=== PATIENT | male | born 1985 | race Caucasian/White ===

== ENCOUNTER 2016-08-11 00:15 | Emergency (ER) | payer OTHER ==
[~2016-08-11] VITALS: Ht 175.3 cm; Wt 92.0 kg
[2016-08-11 00:22] VITALS: Ht 175.3 cm; Wt 92.0 kg
[2016-08-11] MEDS ORDERED: ONDANSETRON (ODT) 4 MG TAB ODT STA (01:30)
--- NOTE | 2016-08-11 01:40 | ERD ---
ER Documentation Chief Complaint Date/Time DATE: 08/11/16 TIME: 01:37 Chief Complaint DIZZINESS BEGAN AT 10PM, NAUSEA AND VOMITING X 1. HPI 31-year-old male presents to emergency department for complaints of dizziness, nausea and vomiting epigastric pain started last night. Patient started to feel dizzy, had an episode of nausea and vomiting, started to have epigastric pain upper back pain, sharp pain, 4/10 scale, accompanying the symptoms. Patient denies any diarrhea or constipation. Patient denies any head injury. Patient denies any numbness. Patient denies any blood in the vomit. Patient denies any blood in the stool or black stool. Patient denies any acid reflux. Patient does verbalize eating a lot of spicy food. ROS All systems reviewed and are negative except as per history of present illness. Medications Home Meds Reported Medications [none] Unknown Strength No Conflict Check 08/11/16 Allergies Allergies: Coded Allergies: No Known Allergy (Unverified , 08/11/16) PMhx/Soc Medical and Surgical Hx: pt denies Medical Hx, pt denies Surgical Hx FmHx Family History: No coronary disease, No diabetes, No other Physical Exam Vitals Vital Signs Date Time Temp Pulse Resp B/P Pulse Ox O2 Delivery O2 Flow Rate FiO2 08/11/16 00:22 98.4 78 17 129/78 95 Physical Exam GENERAL: The patient is well developed and appropriate for usual state of health, in no apparent distress. CHEST: Clear to auscultation bilaterally. There are no rales, wheezes or rhonchi. HEART: Regular rate and rhythm. No murmurs, clicks, rubs or gallops. No S3 or S4. ABDOMEN: Soft, nontender and nondistended. Good bowel sounds. No rebound or guarding. No gross peritonitis. No gross organomegaly or masses. No Don sign or McBurney point tenderness. BACK: No midline or flank tenderness. EXTREMITIES: Equal pulses bilaterally. There is no peripheral clubbing, cyanosis or edema. No focal swelling or erythema. Full range of motion. Grossly neurovascularly intact. NEURO: Alert and oriented. Cranial nerves 2-12 intact. Motor strength in all 4 extremities with 5/5 strength. Sensation grossly intact. Normal speech and gait. SKIN: There is no apparent rash or petechia. The skin is warm and dry. HEMATOLOGIC AND LYMPHATIC: There is no evidence of excessive bruising or lymphedema. No gross cervical, axillary, or inguinal lymphadenopathy. Result Diagram: 08/11/1621208/11/163 Results 24 hrs Laboratory Tests Test 08/11/16 02:13 Alanine Aminotransferase (ALT/SGPT) 24IU/L Albumin 4.2g/dl Albumin/Globulin Ratio 1.05 Alkaline Phosphatase 117IU/L Anion Gap 19 Aspartate Amino Transf (AST/SGOT) 33IU/L Basophils # 0.110^3/ul Basophils % 0.8% Blood Urea Nitrogen 21mg/dl Calcium Level 8.9mg/dl Carbon Dioxide Level 21mmol/L Chloride Level 107mmol/L Creatinine 0.80mg/dl Direct Bilirubin 0.00mg/dl Eosinophils # 0.310^3/ul Eosinophils % 2.8% Globulin 4.00g/dl Glucose Level 90mg/dl Hematocrit 45.0% Hemoglobin 16.8g/dl Indirect Bilirubin 0.2mg/dl Lymphocytes # 2.010^3/ul Lymphocytes % 20.2% Mean Corpuscular Hemoglobin 31.6pg Mean Corpuscular Hemoglobin Concent 37.3g/dl Mean Corpuscular Volume 84.7fl Mean Platelet Volume 10.9fl Monocytes # 1.110^3/ul Monocytes % 10.7% Neutrophils # 6.410^3/ul Neutrophils % 64.4% Nucleated Red Blood Cells # 0.010^3/ul Nucleated Red Blood Cells % 0.0/100WBC Platelet Count 63254^3/UL Potassium Level 4.4mmol/L Red Blood Count 5.3110^6/ul Red Cell Distribution Width 12.4% Sodium Level 143mmol/L Total Bilirubin 0.2mg/dl Total Protein 8.2g/dl White Blood Count 9.910^3/ul Current Medications Medications (Trade) Dose Ordered Sig/Brandon Route PRN Reason Start Time Stop Time Status Last Admin Dose Admin Ondansetron HCl (Zofran Odt) 4 mg ONCE STAT ODT 08/11/16 01:30 08/11/16 01:33 DC 08/11/16 01:30 Patient was given Zofran here in the emergency department. After treatment, patient was able to tolerate po fluids here in the emergency department without any vomiting. There is no signs and symptoms of dehydration. EKG was done, read by me and is normal sinus rhythm at a rate of 83, normal axis , there is no ST changes or changes in the EKG that indicates any cardiac emergencies at this time. Patient's EKG was also reviewed by Dr. Chapman. Impression: no acute findings on EKG PROCEDURE: Right upper quadrant abdominal ultrasound. CLINICAL INDICATION: Abdominal pain TECHNIQUE: Sanchez scale and color doppler ultrasound images of the right upper quadrant. COMPARISON: Abdominal ultrasound 04/27/2007 FINDINGS: Pancreas: Poorly visualized due to overlying bowel gas. Liver: Morphology: Normal in size and contour. Echogenicity: Normal. Focal lesions: None. Main portal vein: Patent with hepatopetal flow. Biliary System: Contracted gallbladder but otherwise normal in appearance. No gallstones seen. No intrahepatic biliary dilatation. Common bile duct measures 4.5 mm in maximal dimension. Kidneys: Right 11.7 cm in length. Right renal cortical thickness is preserved. Normal echogenicity. No hydronephrosis. No renal calculi. No focal lesions. No free fluid identified. IMPRESSION: Normal gallbladder without gallstones. RPTAT: AADD .Jimy Merrill MD, MD Date Time Electronically viewed and signed by .Jimy Merrill MD, MD on 08/11/2016 03:20 .B/ CC: JOSE MCKENZIE NP PROCEDURE: XR Chest. CLINICAL INDICATION: Chest pain. TECHNIQUE: Single frontal chest x-ray. COMPARISON: 04/27/2007 FINDINGS: The cardiomediastinal silhouette is unremarkable. There is unchanged 4 mm nodular density at the left lung base.. No focal infiltrate is seen. There is no pleural effusion. There is no pneumothorax. The osseous structures are unremarkable. IMPRESSION: 1. No active disease. 2. Left lower lobe calcified granuloma, unchanged from 2006. RPTAT: HMVK .Bryan Pitt MD, MD Date Time Electronically viewed and signed by .Bryan Pitt MD, MD on 08/11/2016 03:49 .K/ CC: JOSE MCKENZIE NP Procedures/MDM Medical Decision Making: Patient symptoms of epigastric pain nonspecific at this time, most likely can be gastritis, patient has no symptoms of acute coronary syndrome at this time. EKG is normal. Chest x-ray does not show any cardiopulmonary emergencies at this time. There is low suspicion for abdominal emergencies at this time. Patients abdominal exam is normal at this time. Patients radiology exam does not show any abdominal emergencies at this time. There is low suspicion for appendicitis, cholecystitis, abdominal aortic aneurysms or peritonitis at this time. There is low suspicion for sepsis. Patient appears well and is hemodynamically stable. Disposition: Home. Condition: Stable Prescription omeprazole Mylanta, Zofran, [place] Instructions: Patient is advised to take medications as prescribed. Patient is advised to rest, increase fluid intake and do brat diet for next 1-2 days and progress as tolerated. Patient is advised that if symptoms are worse, severe abdominal pain, uncontrolled vomiting, high fever, severe flank pain, worst signs and symptoms, to return to the emergency department immediately. Otherwise, patient can follow up with primary care doctor in 5-7 days. Departure Diagnosis: Primary Impression: Epigastric pain Condition: Stable Patient Instructions: Epigastric Pain (Uncertain Cause) Additional Instructions: Patient is advised to take medications as prescribed. Patient is advised to rest , increase fluid intake and do brat diet for next 1-2 days and progress as tolerated. Patient is advised that if symptoms are worse, severe abdominal pain , uncontrolled vomiting, high fever, severe flank pain, worst signs and symptoms , to return to the emergency department immediately. Otherwise, patient can follow up with primary care doctor in 5-7 days. JOSE MCKENZIE NP Aug 11, 2016 01:40
--- NOTE | 2016-08-11 03:20 | RADRPT ---
PROCEDURE: Right upper quadrant abdominal ultrasound. CLINICAL INDICATION: Abdominal pain TECHNIQUE: Sanchez scale and color doppler ultrasound images of the right upper quadrant. COMPARISON: Abdominal ultrasound 04/27/2007 FINDINGS: Pancreas: Poorly visualized due to overlying bowel gas. Liver: Morphology: Normal in size and contour. Echogenicity: Normal. Focal lesions: None. Main portal vein: Patent with hepatopetal flow. Biliary System: Contracted gallbladder but otherwise normal in appearance. No gallstones seen. No intrahepatic biliary dilatation. Common bile duct measures 4.5 mm in maximal dimension. Kidneys: Right 11.7 cm in length. Right renal cortical thickness is preserved. Normal echogenicity. No hydronephrosis. No renal calculi. No focal lesions. No free fluid identified. IMPRESSION: Normal gallbladder without gallstones. RPTAT: AADD .Jimy Merrill MD, MD Date Time Electronically viewed and signed by .Jimy Merrill MD, on 08/11/2016 03:20 .B/
--- NOTE | 2016-08-11 03:49 | RADRPT ---
PROCEDURE: XR Chest. CLINICAL INDICATION: Chest pain. TECHNIQUE: Single frontal chest x-ray. COMPARISON: 04/27/2007 FINDINGS: The cardiomediastinal silhouette is unremarkable. There is unchanged 4 mm nodular density at the le ft lung base.. No focal infiltrate is seen. There is no pleural effusion. There is no pneumothorax . The osseous structures are unremarkable. IMPRESSION: 1. No active disease. 2. Left lower lobe calcified granuloma, unchanged from 2006. RPTAT: HMVK .Bryan Pitt MD, MD Date Time Electronically viewed and signed by .Bryan Pitt MD, on 08/11/2016 03:49 .K/
[2016-08-11 03:58] LABS: ADD SCAN DIFF NO
[2016-08-11 03:59] LABS: BASOPHIL # 0.1 10^3/ul (0.0-0.1); BASOPHILS % 0.8 % (0.0-2.0); EOSINOPHILS # 0.3 10^3/ul (0.0-0.5); EOSINOPHILS % 2.8 % (0.0-7.0); HEMOGLOBIN 16.8 g/dl (14.0-18.0); LYMPHOCYTES % 20.2 % (15.0-51.0); MEAN CORPUSCULAR HEMOGLOBIN 31.6 pg (29.0-33.0); MEAN CORPUSCULAR HGB CONC 37.3 g/dl (32.0-37.0); MEAN CORPUSCULAR VOLUME 84.7 fl (82.0-101.0); MEAN PLATELET VOLUME 10.9 fl (7.4-10.4); MONOCYTE # 1.1 10^3/ul (0.3-0.9); MONOCYTES % 10.7 % (0.0-11.0); NEUTROPHIL # 6.4 10^3/ul (1.6-7.5); NEUTROPHILS % 64.4 % (39.0-77.0); PLATELET COUNT 271 10^3/UL (140-415); RED BLOOD COUNT 5.31 10^6/ul (4.70-6.10); RED CELL DISTRIBUTION WIDTH 12.4 % (11.5-14.5); WHITE BLOOD COUNT 9.9 10^3/ul (4.8-10.8)
[2016-08-11 04:14] LABS: ALBUMIN 4.2 g/dl (3.3-4.9)
[2016-08-11 04:15] LABS: POTASSIUM 4.4 mmol/L (3.5-5.1)
[2016-08-11 04:17] LABS: ALBUMIN/GLOBULIN RATIO 1.05; BILIRUBIN,INDIRECT 0.2 mg/dl (0-1.1); BILIRUBIN,TOTAL 0.2 mg/dl (0.2-1.3); CREATININE 0.8 mg/dl (0.61-1.24); TOTAL PROTEIN 8.2 g/dl (6.1-8.1)
[2016-08-11 04:18] LABS: CALCIUM 8.9 mg/dl (8.4-10.2)
[2016-08-11] MEDS ORDERED: ONDA4TAB14 PO (05:00)
[2016-08-11] MEDS ORDERED: OMEP20CA16 PO (05:00)
[2016-08-11] MEDS ORDERED: MAG-19 PO (05:00)
[2016-08-11 05:28] VITALS: BP 125/77; PULSE 84; RESP 16
== END 2016-08-11 05:39 | disposition home or self-care (01) ==
LOC: FTE 00:15
DX: R10.13 Epigastric pain (principal)
CPT/HCPCS: 36415; 71010; 76705; 80053; 85025; 93005